=== PATIENT | male | born 1995 | race Caucasian/White ===

== ENCOUNTER 2017-04-02 12:41 | Emergency (ER) | payer MEDICAID, OTHER ==
[~2017-04-02] VITALS: Ht 180.3 cm; Wt 65.0 kg
[2017-04-02 15:45] VITALS: BP 123/56
[2017-04-02] MEDS ORDERED: TETANUS, DIPHTHERIA, PERTUSSIS VAC/PF 0.5ML (>7YR OLD) IM ONE (16:00)
== END 2017-04-02 17:31 | disposition home or self-care (01) ==
LOC: ER 16:01
DX: M25.552 Pain in left hip (principal); V23.4XXA Motorcycle driver injured in collision with car, pick-up truck or van in traffic accident, initial encounter; Y93.89 Activity, other specified; Y92.488 Other paved roadways as the place of occurrence of the external cause
CPT/HCPCS: 73502; 90471; 90715; 99284; Z7610